=== PATIENT | male | born 1990 | race Hispanic/Latino ===

== ENCOUNTER 2018-07-16 18:55 | Emergency (ER) | payer OTHER | END 2018-07-16 19:52 | disposition home or self-care (01) | LOC: SCSER 18:55 | DX: H10.9 Unspecified conjunctivitis (principal); F98.8 Other specified behavioral and emotional disorders with onset usually occurring in childhood and adolescence; Z79.899 Other long term (current) drug therapy | CPT/HCPCS: 99282 ==